=== PATIENT | female | born 1975 | race Caucasian/White ===

== ENCOUNTER 2019-07-14 18:01 | Emergency (ER) | payer MEDICAID ==
[~2019-07-14] VITALS: Ht 162.6 cm; Wt 77.1 kg
[~2019-07-14 18:01] MED LIST: AMBIEN10 MG PO; BACLOFEN10 MG PO; BACTRIM DS TAB1 EACH PO; NORCO 5-325 TA1 EACH PO; PERCOCET 5-3251 EACH PO; ZOFRAN ODT8 MG PO
[2019-07-14] MEDS ORDERED: ACETAMINOPHEN-1 EACH PO (18:12)
[2019-07-14] MEDS ORDERED: VIRTUSSIN AC L118 ML PO (18:43)
--- NOTE | 2019-07-15 22:34 | EKG ---
[facility] [address] [facility] [place] [address] Signed Normal sinus rhythm Nonspecific ST abnormality Abnormal ECG No previous ECGs available Confirmed by TI KATE MD ([id number] on 07/15/2019 10:34:42 PM Electronically Signed By: TI KATE MD 07/15/19 2234 PATIENT NAME: TRINI GARCIA Electrocardiogram DATE OF : 77 PHYSICIAN: TI KATE MD REPORT #: [id number] REPORT IS CONFIDENTIAL AND NOT TO BE RELEASED WITHOUT AUTHORIZATION
== END 2019-07-14 18:58 | disposition home or self-care (01) ==
LOC: ED 18:01
DX: J06.9 Acute upper respiratory infection, unspecified (principal); I10 Essential (primary) hypertension; F17.200 Nicotine dependence, unspecified, uncomplicated; Z90.710 Acquired absence of both cervix and uterus; Z88.0 Allergy status to penicillin; Z88.1 Allergy status to other antibiotic agents
CPT/HCPCS: 71046; 93005; 93010; 99285-25

== ENCOUNTER 2021-06-20 19:54 | Emergency (ER) | payer BC ==
[~2021-06-20] VITALS: Ht 162.6 cm; Wt 77.1 kg
[~2021-06-20 19:54] MED LIST changes: +ACETAMINOPHEN-1 EACH PO; +VIRTUSSIN AC L118 ML PO
[2021-06-20] MEDS ORDERED: TYLENOL EXTRA500 MG PO (19:58)
[2021-06-20] MEDS ORDERED: NAPROXEN500 MG PO (21:18)
--- NOTE | 2021-06-23 16:14 | EKG ---
[facility] [address] [facility] [place] [address] Signed Sinus bradycardia Otherwise normal ECG No previous ECGs available Confirmed by JULIO OLVERA MD ([id number] on 06/23/2021 4:14:03 PM Electronically Signed By: JULIO OLVERA MD 06/23/21 1614 PATIENT NAME: TRINI LAW Electrocardiogram DATE OF : 77 PHYSICIAN: JULIO OLVERA MD REPORT #: [id number] REPORT IS CONFIDENTIAL AND NOT TO BE RELEASED WITHOUT AUTHORIZATION
== END 2021-06-20 21:52 | disposition home or self-care (01) ==
LOC: ED 19:54
DX: R07.89 Other chest pain (principal); I10 Essential (primary) hypertension; F17.200 Nicotine dependence, unspecified, uncomplicated; Z88.0 Allergy status to penicillin; Z88.1 Allergy status to other antibiotic agents; Z79.899 Other long term (current) drug therapy; Z20.822 Contact with and (suspected) exposure to COVID-19
CPT/HCPCS: 71045; 80053; 83735; 84484; 85025; 85379; 93005; 93010; 96374; 99285-25; C9803; J1885; U0003

== ENCOUNTER 2023-10-01 13:03 | Emergency (ER) | payer BC ==
[~2023-10-01] VITALS: Ht 162.6 cm; Wt 89.8 kg
[~2023-10-01 13:03] MED LIST changes: +HYDROCODON-ACE1 EA10 PO; +NAPROXEN500 MG PO; +ONDANSETRON ODT8 MG PO; +PERCOCET 7.5-31 EACH PO; +TYLENOL EXTRA500 MG PO
[2023-10-01 13:56] LABS: EOSINOPHILS 10.2 % (0-6); HEMATOCRIT 39.1 % (35.0-50.0); HEMOGLOBIN 13.2 g/dL (12.0-18.0); MCH 30.3 (27-36); MCHC 33.7 g/dl (30-36); MCV 89.9 fl (81-99); MONOCYTES 4.7 % (0-12); NEUTROPHILS 56.1 % (39-80); PLATELET COUNT 333 K/uL (140-440); RBC 4.35 M/ul (4.3-5.7); RDW 13.5 (10.5-15.0)
[2023-10-01 14:10] LABS: ALBUMIN/GLOBULIN RATIO 1.03 (1.1-2.4); ANION GAP 14.1 (7-21); BILIRUBIN, TOTAL 0.3 ng/dL (0.2-1.0); BUN/CREATININE RATIO 6.06 (6.0-28.6); CALCIUM 9.1 mg/dL (8.5-10.1); CREATININE, SERUM 0.99 mg/dL (0.55-1.02); POTASSIUM 4.1 mmol/L (3.5-5.1); PROTEIN, TOTAL 7.9 g/dL (6.4-8.2)
[2023-10-01 14:31] LABS: INFLUENZA B NAA NEGATIVE (NEGATIVE); RESPIRATORY SYNCYTIAL VIR NAA NEGATIVE (NEGATIVE)
[2023-10-01] MEDS ORDERED: PREDNISONE20 MG PO (15:00)
[2023-10-01] MEDS ORDERED: ONDANSETRON ODT4 MG PO (15:00)
[2023-10-01] MEDS ORDERED: VENTOLIN HFA18 GM INH (15:00)
[2023-10-01 15:15] VITALS: BP 129/87
== END 2023-10-01 15:15 | disposition home or self-care (01) ==
LOC: ED 13:03
PROVIDERS: Emergency Medicine
DX: J20.9 Acute bronchitis, unspecified (principal); J45.909 Unspecified asthma, uncomplicated; I10 Essential (primary) hypertension; F17.200 Nicotine dependence, unspecified, uncomplicated; Z88.0 Allergy status to penicillin; Z88.8 Allergy status to other drugs, medicaments and biological substances; Z20.822 Contact with and (suspected) exposure to COVID-19
CPT/HCPCS: 36415; 71046; 80053; 85025; 87502; 94640; 96374; 99285-25; 99406; C9803; J2405; J7030; U0002